=== PATIENT | female | born 1970 | race Caucasian/White ===

== ENCOUNTER 2017-11-08 14:38 | Inpatient (IN) | payer OTHER ==
[~2017-11-08] VITALS: Ht 167.6 cm; Wt 60.9 kg
[~2017-11-08 14:38] MED LIST: LORTA5 PO
[2017-11-08 14:40] VITALS: BP 122/77; PULSE 94; RESP 14; TEMP 100.2; O2SAT 100
--- NOTE | 2017-11-08 15:47 | RADRPT ---
EXAM DATE/TIME: 11/08/2017 15:15 [place] COMPARISON: No previous studies available for comparison. INDICATIONS : Pain and swelling in right knee. MEDICAL HISTORY : None. SURGICAL HISTORY : None. ENCOUNTER: Initial ACUITY: 1 day PAIN SCORE: 8/10 LOCATION: Right knee FINDINGS: Four view examination of the right knee demonstrates no evidence of fracture or dislocation. Bony mi neralization is normal. Minimal degenerative changes in the medial and patellofemoral compartments. T he suprapatellar soft tissues have a normal configuration. CONCLUSION: 1. 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 2. No acute fracture or dislocation. Jose Yadav MD on November 08, 2017 at 15:44 Board Certified Radiologist. This report was verified electronically.
[2017-11-08 16:39] LABS: AUTOMATED NEUTROPHIL # 21.3 TH/MM3 (1.8-7.7); BASOPHIL % 0.1 % (0.0-2.0); HEMATOCRIT 34.3 % (35.0-46.0); HEMOGLOBIN 11.4 GM/DL (11.6-15.3); LYMPH % 2.2 % (9.0-44.0); LYMPHOCYTE # 0.5 TH/MM3 (1.0-4.8); MEAN CELL VOLUME 86.2 FL (80.0-100.0); MEAN CORPUSCULAR HEMOGLOBIN 28.7 PG (27.0-34.0); MEAN CORPUSCULAR HGB CONC 33.3 % (32.0-36.0); MEAN PLATELET VOLUME 7.4 FL (7.0-11.0); MONO % 5.3 % (0.0-8.0); MONOCYTE # 1.2 TH/MM3 (0-0.9); NEUT % 92.4 % (16.0-70.0); PLATELET COUNT 228 TH/MM3 (150-450); RED BLOOD COUNT 3.97 MIL/MM3 (4.00-5.30); RED CELL DISTRIBUTION WIDTH 13.4 % (11.6-17.2); WHITE BLOOD COUNT 23.1 TH/MM3 (4.0-11.0)
[2017-11-08 16:53] LABS: ALBUMIN 3.3 GM/DL (3.4-5.0); ALT (GPT) 16 U/L (10-53); AST (GOT) 12 U/L (15-37); BICARBONATE 24.6 MEQ/L (21.0-32.0); BLOOD UREA NITROGEN 12 MG/DL (7-18); CALCIUM 8.3 MG/DL (8.5-10.1); CHLORIDE 97 MEQ/L (98-107); CREATININE 0.95 MG/DL (0.50-1.00); GLOMERULAR FILTRATION RATE 63 ML/MIN (>89); GLUCOSE,RANDOM 108 MG/DL (74-106); SODIUM (NA) 131 MEQ/L (136-145)
[2017-11-08 16:56] LABS: ALKALINE PHOSPHATASE 48 U/L (45-117); INTERNATIONAL NORMALIZED RATIO 1.2 RATIO; PROTHROMBIN TIME - PATIENT 12.4 SEC (9.8-11.6); TOTAL BILIRUBIN ADULT 0.6 MG/DL (0.2-1.0); TOTAL PROTEIN 6.7 GM/DL (6.4-8.2)
[2017-11-08 17:32] LABS: AMORPHOUS SEDIMENT, URINE RARE; BACTERIA, URINE RARE /hpf; BILIRUBIN, URINE NEG (NEG); BLOOD, URINE SMALL (NEG); GLUCOSE,URINE NEG (NEG); KETONE, URINE 10 mg/dL (NEG); NITRITE,URINE NEG (NEG); SQUAMOUS EPITHELIAL CELL URINE 3 /hpf (0-5); URINE COLOR YELLOW (YELLW/STRAW); URINE LEUKOCYTE ESTERASE NEG (NEG)
[2017-11-08] MEDS ORDERED: PIPERACIL-TAZO 4.5 GM PREMIX 100 ML IV STA (18:47)
[2017-11-08] MEDS ORDERED: VANCOMYCIN INJ 1,000 MG in SODIUM CHLOR 0.9% 250 ML INJ 250 ML IV STA (18:47)
--- NOTE | 2017-11-08 18:53 | PD ---
HPI Chief Complaint: Musculoskeletal Complaint Time Seen by Provider: 18:47 Travel History International Travel<30 days: No Contact w/Intl Traveler<30days: No Traveled to known affect area: No History of Present Illness HPI 47-year-old female patient presents to the ER today because of general weakness , fevers for several days. She states that she started not feeling well, states that she had a spot on her right knee that started a few days ago after she had been kneeling down at home and painting. She had a lesion there that was scabbing over that looked okay initially but then she noticed that there was increased swelling and redness. She was seen [facility] the [facility] yesterday and given a shot of IM antibiotics and released. However, she is feeling worse, having body aches and joint aches and is coming to the ER because of that. Modifying Factors: None Associated Signs & Symptoms: Fevers, joint pain, increased pain and redness at the right knee Risk Factors: None PFSH Social History Tobacco Use: No Allergies-Medications (Allergen,Severity, Reaction): Coded Allergies: codeine (Verified Adverse Reaction, Mild, NAUSEA, 11/08/17) Reported Meds & Prescriptions Reported Meds & Active Scripts Active Reported Flexeril (Cyclobenzaprine HCl) 5 Mg Tab 5 Mg PO TID [Unknown] Review of Systems Except as stated in HPI: all other systems reviewed are Neg Physical Exam Narrative GENERAL: Well-developed middle age female patient currently in mild distress. Awake and oriented 3. SKIN: Focused skin assessment warm/dry. There is notable 1 cm perforation to the right anterior knee and significant surrounding erythema and tenderness over the anterior knee going down the anterior retana. HEAD: Atraumatic. Normocephalic. EYES: Pupils equal and round. No scleral icterus. No injection or drainage. ENT: No nasal bleeding or discharge. Mucous membranes pink and moist. NECK: Trachea midline. No JVD. CARDIOVASCULAR: Regular rate and rhythm. No murmur appreciated. RESPIRATORY: No accessory muscle use. Clear to auscultation. Breath sounds equal bilaterally. GASTROINTESTINAL: Abdomen soft, non-tender, nondistended. Hepatic and splenic margins not palpable. MUSCULOSKELETAL: No obvious deformities. No clubbing. No cyanosis. No edema. NEUROLOGICAL: Awake and alert. No obvious cranial nerve deficits. Motor grossly within normal limits. Normal speech. PSYCHIATRIC: Appropriate mood and affect; insight and judgment normal. Data Data Last Documented VS Vital Signs Date Time Temp Pulse Resp B/P (MAP) Pulse Ox O2 Delivery O2 Flow Rate FiO2 11/08/17 14:40 100.2 94 14 122/77 (92) 100 Orders Orders Complete Blood Count With Diff (11/08/17 14:45) Comprehensive Metabolic Panel (11/08/17 14:45) Prothrombin Time / Inr (Pt) (11/08/17 14:45) Act Partial Throm Time (Ptt) (11/08/17 14:45) Westergren Sedimentation Rate (11/08/17 14:45) C-Reactive Protein (Crp) (11/08/17 14:45) Urinalysis - C+S If Indicated (11/08/17 14:45) Knee, Complete (4vws) (11/08/17 ) Lactic Acid Sepsis Protocol (11/08/17 14:47) Blood Culture (11/08/17 18:47) Piperacil-Tazo 4.5 Gm Premix (Zosyn 4.5 (11/08/17 18:47) Vancomycin Inj (Vancomycin Inj) (11/08/17 18:47) Admit Order (Ed Use Only) (11/08/17 19:18) Labs Laboratory Tests Test 11/08/17 16:20 White Blood Count 23.1 TH/MM3 Red Blood Count 3.97 MIL/MM3 Hemoglobin 11.4 GM/DL Hematocrit 34.3 % Mean Corpuscular Volume 86.2 FL Mean Corpuscular Hemoglobin 28.7 PG Mean Corpuscular Hemoglobin Concent 33.3 % Red Cell Distribution Width 13.4 % Platelet Count 228 TH/MM3 Mean Platelet Volume 7.4 FL Neutrophils (%) (Auto) 92.4 % Lymphocytes (%) (Auto) 2.2 % Monocytes (%) (Auto) 5.3 % Eosinophils (%) (Auto) 0.0 % Basophils (%) (Auto) 0.1 % Neutrophils # (Auto) 21.3 TH/MM3 Lymphocytes # (Auto) 0.5 TH/MM3 Monocytes # (Auto) 1.2 TH/MM3 Eosinophils # (Auto) 0.0 TH/MM3 Basophils # (Auto) 0.0 TH/MM3 CBC Comment DIFF FINAL Differential Comment Erythrocyte Sedimentation Rate 20 mm/hr Prothrombin Time 12.4 SEC Prothromb Time International Ratio 1.2 RATIO Activated Partial Thromboplast Time 32.6 SEC Urine Color YELLOW Urine Turbidity CLEAR Urine pH 8.0 Urine Specific [place] 1.020 Urine Protein 30 mg/dL Urine Glucose (UA) NEG mg/dL Urine Ketones 10 mg/dL Urine Occult Blood SMALL Urine Nitrite NEG Urine Bilirubin NEG Urine Urobilinogen LESS THAN 2.0 MG/DL Urine Leukocyte Esterase NEG Urine RBC 16 /hpf Urine WBC LESS THAN 1 /hpf Urine Squamous Epithelial Cells 3 /hpf Urine Amorphous Sediment RARE Urine Bacteria RARE /hpf Microscopic Urinalysis Comment CULT NOT INDICATED Blood Urea Nitrogen 12 MG/DL Creatinine 0.95 MG/DL Random Glucose 108 MG/DL Total Protein 6.7 GM/DL Albumin 3.3 GM/DL Calcium Level 8.3 MG/DL Alkaline Phosphatase 48 U/L Aspartate Amino Transf (AST/SGOT) 12 U/L Alanine Aminotransferase (ALT/SGPT) 16 U/L Total Bilirubin 0.6 MG/DL Sodium Level 131 MEQ/L Potassium Level 3.6 MEQ/L Chloride Level 97 MEQ/L Carbon Dioxide Level 24.6 MEQ/L Anion Gap 9 MEQ/L Estimat Glomerular Filtration Rate 63 ML/MIN Lactic Acid Level 1.2 mmol/L C-Reactive Protein 16.00 MG/DL [facility] Medical Decision Making Medical Screen Exam Complete: Yes Emergency Medical Condition: Yes Medical Record Reviewed: Yes Interpretation(s) Laboratory Tests Test 11/08/17 16:20 White Blood Count 23.1 TH/MM3 (4.0-11.0) Red Blood Count 3.97 MIL/MM3 (4.00-5.30) Hemoglobin 11.4 GM/DL (11.6-15.3) Hematocrit 34.3 % (35.0-46.0) Neutrophils (%) (Auto) 92.4 % (16.0-70.0) Lymphocytes (%) (Auto) 2.2 % (9.0-44.0) Neutrophils # (Auto) 21.3 TH/MM3 (1.8-7.7) Lymphocytes # (Auto) 0.5 TH/MM3 (1.0-4.8) Monocytes # (Auto) 1.2 TH/MM3 (0-0.9) Prothrombin Time 12.4 SEC (9.8-11.6) Activated Partial Thromboplast Time 32.6 SEC (24.3-30.1) Urine Protein 30 mg/dL (NEG-TRACE) Urine Ketones 10 mg/dL (NEG) Urine Occult Blood SMALL (NEG) Urine RBC 16 /hpf (0-3) Urine Bacteria RARE /hpf (NONE) Random Glucose 108 MG/DL (74-106) Albumin 3.3 GM/DL (3.4-5.0) Calcium Level 8.3 MG/DL (8.5-10.1) Aspartate Amino Transf (AST/SGOT) 12 U/L (15-37) Sodium Level 131 MEQ/L (136-145) Chloride Level 97 MEQ/L (98-107) Estimat Glomerular Filtration Rate 63 ML/MIN (>89) C-Reactive Protein 16.00 MG/DL (0.00-0.30) Last 24 hours Impressions Knee X-Ray 11/08/17 0000 Signed Impressions: Service Date/Time: Wednesday, November 08, 2017 15:15 - CONCLUSION: 1. 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 2. No acute fracture or dislocation. Jose Yadav MD Differential Diagnosis Cellulitis versus sepsis versus abscess versus viral syndrome Narrative Course There is significant cellulitis in the anterior right knee. She is febrile in the ER and leukocytosis was noted on lab work. IV is packs were initiated after blood cultures are drawn. My plan would be to admit her for further treatment. She apparently has failed outpatient antibiotics was given her yesterday. Case is discussed with Dr. Fortune for admission. Diagnosis Primary Impression: Cellulitis of right knee Additional Impression: Sepsis Admitting Information Admitting Physician Requests: Admit Heraclio Novoa MD Nov 08, 2017 18:53
[2017-11-08] MEDS ORDERED: CYCL5TAB PO (19:04)
[2017-11-08] MEDS ORDERED: SODIUM CHLORIDE 0.9% FLUSH 10 ML FLUSH IV FLUSH PRN (19:30)
[2017-11-08] MEDS ORDERED: ONDANSETRON HCL 4 MG/2 ML VIAL IVP PRN (19:30)
[2017-11-08] MEDS ORDERED: NALOXONE HCL 0.4 MG/ML AMP IV PUSH PRN (19:30)
[2017-11-08] MEDS ORDERED: Vancomycin Consult Pharmacy 1 EA OTHER SCH (19:30)
[2017-11-08] MEDS: SODIUM CHLORIDE 0.9% FLUSH 10 ML FLUSH IV FLUSH SCH (21:00)
[2017-11-08] MEDS: ENOXAPARIN SODIUM 40 MG/0.4 ML SYRINGE SQ SCH (21:00)
[2017-11-08 21:30] VITALS: BP 94/51; PULSE 91; RESP 19; TEMP 101.7; O2SAT 98
[2017-11-08] MEDS: ACETAMINOPHEN 325 MG TAB PO PRN (21:53)
[2017-11-08] MEDS: SODIUM CHLOR 0.9% 1000 ML INJ 1,000 ML IV SCH (21:54)
--- NOTE | 2017-11-08 21:57 | HHI.HP ---
[facility] Primary Care Physician [facility] Admission Diagnosis right knee cellulitis/sepsis Diagnoses: Travel History International Travel<30 Days: No Contact w/Intl Traveler <30 Da: No Traveled to Known Affected Are: No History of Present Illness 47-year-old female with a past medical history significant for anxiety presents for evaluation of right knee redness and swelling. The patient reports that 2 days ago she felt achy and had chills. She initially noticed right knee swelling yesterday with surrounding erythema that was warm to the touch. The patient went to the [facility] where she was evaluated and had 1 dose of IM antibiotic and was discharged with by mouth doxycycline. The patient reports that the swelling continued to expand with increased redness and pain. Patient reports she is able to ambulate however it is painful. She has a healing abrasion on the right knee that she sustained several days ago while painting her house. Vital signs: Temperature 100.2, pulse 94, respiratory rate 18, blood pressure 122/77, pulse ox 100% on room air Review of Systems Positive chills Denies blurry vision, otorrhea, rhinorrhea Denies sore throat and cough No chest pain, palpitations No shortness of breath or wheezing No abdominal pain Denies constipation/diarrhea/nausea/vomiting Right knee/lower extremity pain Denies focal weakness No rashes Past Family Social History Past Medical History Anxiety Past Surgical History Liposuction Breast augmentation D&C Reported Medications Reported Meds & Active Scripts Active Reported Flexeril (Cyclobenzaprine HCl) 5 Mg Tab 5 Mg PO TID [Unknown] Allergies: Coded Allergies: codeine (Verified Adverse Reaction, Mild, NAUSEA, 11/08/17) Family History Father with CAD Social History Denies tobacco. Rare alcohol. Denies illicit drugs. Physical Exam Vital Signs Vital Signs Date Time Temp Pulse Resp B/P (MAP) Pulse Ox O2 Delivery O2 Flow Rate FiO2 11/08/17 21:30 101.7 91 19 94/51 (65) 98 11/08/17 20:35 11/08/17 14:40 100.2 94 14 122/77 (92) 100 Physical Exam GENERAL: female lying in bed shivering SKIN: Erythema extending from above the knee to senior care down the right lower extremity. Warm to the touch with healing abrasion on the knee joint. No drainage or fluctuance. HEAD: Atraumatic. Normocephalic. No temporal or scalp tenderness. EYES: Pupils equal round and reactive. Extraocular motions intact. No scleral icterus. No injection or drainage. ENT: Nose without bleeding, purulent drainage or septal hematoma. Throat without erythema, tonsillar hypertrophy or exudate. Uvula midline. Airway patent. NECK: Trachea midline. No JVD or lymphadenopathy. Supple, nontender, no meningeal signs. CARDIOVASCULAR: Regular rate and rhythm without murmurs, gallops, or rubs. RESPIRATORY: Clear to auscultation. Breath sounds equal bilaterally. No wheezes , rales, or rhonchi. GASTROINTESTINAL: Abdomen soft, non-tender, nondistended. No hepato-splenomegaly , or palpable masses. No guarding. MUSCULOSKELETAL: Right knee with swelling. Full range of motion. Neurovascularly intact. NEUROLOGICAL: Awake and alert. Cranial nerves II through XII intact. Motor and sensory grossly within normal limits. Normal speech. Laboratory Laboratory Tests Test 11/08/17 16:20 White Blood Count 23.1 Red Blood Count 3.97 Hemoglobin 11.4 Hematocrit 34.3 Mean Corpuscular Volume 86.2 Mean Corpuscular Hemoglobin 28.7 Mean Corpuscular Hemoglobin Concent 33.3 Red Cell Distribution Width 13.4 Platelet Count 228 Mean Platelet Volume 7.4 Neutrophils (%) (Auto) 92.4 Lymphocytes (%) (Auto) 2.2 Monocytes (%) (Auto) 5.3 Eosinophils (%) (Auto) 0.0 Basophils (%) (Auto) 0.1 Neutrophils # (Auto) 21.3 Lymphocytes # (Auto) 0.5 Monocytes # (Auto) 1.2 Eosinophils # (Auto) 0.0 Basophils # (Auto) 0.0 CBC Comment DIFF FINAL Differential Comment Erythrocyte Sedimentation Rate 20 Prothrombin Time 12.4 Prothromb Time International Ratio 1.2 Activated Partial Thromboplast Time 32.6 Urine Color YELLOW Urine Turbidity CLEAR Urine pH 8.0 Urine Specific [place] 1.020 Urine Protein 30 Urine Glucose (UA) NEG Urine Ketones 10 Urine Occult Blood SMALL Urine Nitrite NEG Urine Bilirubin NEG Urine Urobilinogen LESS THAN 2.0 Urine Leukocyte Esterase NEG Urine RBC 16 Urine WBC LESS THAN 1 Urine Squamous Epithelial Cells 3 Urine Amorphous Sediment RARE Urine Bacteria RARE Microscopic Urinalysis Comment CULT NOT INDICATED Blood Urea Nitrogen 12 Creatinine 0.95 Random Glucose 108 Total Protein 6.7 Albumin 3.3 Calcium Level 8.3 Alkaline Phosphatase 48 Aspartate Amino Transf (AST/SGOT) 12 Alanine Aminotransferase (ALT/SGPT) 16 Total Bilirubin 0.6 Sodium Level 131 Potassium Level 3.6 Chloride Level 97 Carbon Dioxide Level 24.6 Anion Gap 9 Estimat Glomerular Filtration Rate 63 Lactic Acid Level 1.2 C-Reactive Protein 16.00 Date/Time Source Procedure Growth Status 11/08/17 18:50 Blood Peripheral Aerobic Blood Culture Pending Received 11/08/17 18:50 Blood Peripheral Anaerobic Blood Culture Pending Received Result Diagram: 11/08/17 1620 11/08/17 1620 Rafy VTE Risk Assessment Rafy VTE Risk Assessment: No/Low Risk (score <= 1) Caprini Risk Assessment Model Point Value = 1 Point Value = 2 Point Value = 3 Point Value = 5 Age 41-60 Minor surgery BMI > 25 kg/m2 Swollen legs Varicose veins or History of unexplained or recurrent spontaneous Oral contraceptives or hormone replacement Sepsis (< 1 month) Serious lung disease, including pneumonia (< 1 month) Abnormal pulmonary function Acute myocardial infarction Congestive heart failure (< 1 month) History of inflammatory bowel disease Medical patient at bed rest Age 61-74 Arthroscopic surgery Major open surgery (> 45 min) Laparoscopic surgery (> 45 min) Malignancy Confined to bed (> 72 hours) Immobilizing plaster cast Central venous access Age >= 75 History of VTE Family history of VTE Factor V Leiden Prothrombin [id number] Lupus anticoagulant Anticardiolipin antibodies Elevated serum homocysteine Heparin-induced thrombocytopenia Other congenital or acquired thrombophilia Stroke (< 1 month) Elective arthroplasty Hip, pelvis, or leg fracture Acute spinal cord injury (< 1 month) Prophylaxis Regimen Total Risk Factor Score Risk Level Prophylaxis Regimen 0-1 Low Early ambulation 2 Moderate Order ONE of the following: *Sequential Compression Device (SCD) *Heparin 5000 units SQ BID 3-4 Higher Order ONE of the following medications: *Heparin 5000 units SQ TID *Enoxaparin/Lovenox 40 mg SQ daily (WT < 150 kg, CrCl > 30 mL/min) *Enoxaparin/Lovenox 30 mg SQ daily (WT < 150 kg, CrCl > 10-29 mL/min) *Enoxaparin/Lovenox 30 mg SQ BID (WT < 150 kg, CrCl > 30 mL/min) AND/OR *Sequential Compression Device (SCD) 5 or more Highest Order ONE of the following medications: *Heparin 5000 units SQ TID (Preferred with Epidurals) *Enoxaparin/Lovenox 40 mg SQ daily (WT < 150 kg, CrCl > 30 mL/min) *Enoxaparin/Lovenox 30 mg SQ daily (WT < 150 kg, CrCl > 10-29 mL/min) *Enoxaparin/Lovenox 30 mg SQ BID (WT < 150 kg, CrCl > 30 mL/min) AND *Sequential Compression Device (SCD) Assessment and Plan Assessment and Plan Assessment/plan: 1. Cellulitis, failed outpatient therapy Patient with swollen knee joint and surrounding erythema/edema Vancomycin/Zosyn Blood cultures pending Monitor for signs of sepsis If symptoms do not improve patient may benefit from tap of right knee joint with fluid studies, clinically does not appear to be septic joint Knee x-ray without acute process 2. Anxiety Patient reports she rarely requires medication FEN Heart healthy diet Electrolytes: monitor and replete prn Physician Certification 2 Midnight Certification Type: Admission for Inpatient Services Order for Inpatient Services The services are ordered in accordance with Medicare regulations or non- Medicare payer requirements, as applicable. In the case of services not specified as inpatient-only, they are appropriately provided as inpatient services in accordance with the 2-midnight benchmark. Estimated LOS (days): 2 2 days is the estimated time the patient will need to remain in the hospital, assuming treatment plan goals are met and no additional complications. Post-Hospital Plan: Not yet determined Marie Fortune MD Nov 08, 2017 21:57
[2017-11-08] MEDS ORDERED: ZOLPIDEM TARTRATE 10 MG TAB PO PRN (22:00)
[2017-11-09] VITALS (8 sets, daily range): BP systolic 77–112; BP diastolic 44–59; PULSE 76–98; RESP 18; TEMP 98.1–100; O2SAT 96–100
[2017-11-09] MEDS: PIPERACIL-TAZO 3.375 GM PREMIX 50 ML IV SCH ×4 (01:06→20:42)
[2017-11-09] MEDS ORDERED: SODIUM CHLOR 0.9% 1000 ML INJ 1,000 ML IV ONE ×2 (02:30→04:15)
[2017-11-09] MEDS: ACETAMINOPHEN 325 MG TAB PO PRN (04:21)
[2017-11-09] MEDS: VANCOMYCIN INJ 750 MG in SODIUM CHLOR 0.9% 250 ML INJ 250 ML IV SCH ×2 (05:36→18:34)
[2017-11-09] MEDS ORDERED: LORazepam 0.5 MG TAB PO ONE (06:15)
[2017-11-09] MEDS: SODIUM CHLOR 0.9% 1000 ML INJ 1,000 ML IV SCH ×2 (06:26→15:30)
[2017-11-09 06:58] LABS: AUTOMATED NEUTROPHIL # 15.1 TH/MM3 (1.8-7.7); BASOPHIL % 0.1 % (0.0-2.0); HEMATOCRIT 30.1 % (35.0-46.0); HEMOGLOBIN 10.3 GM/DL (11.6-15.3); LYMPH % 4.1 % (9.0-44.0); LYMPHOCYTE # 0.7 TH/MM3 (1.0-4.8); MEAN CELL VOLUME 85.2 FL (80.0-100.0); MEAN CORPUSCULAR HEMOGLOBIN 29.2 PG (27.0-34.0); MEAN CORPUSCULAR HGB CONC 34.3 % (32.0-36.0); MEAN PLATELET VOLUME 7.7 FL (7.0-11.0); MONO % 6.9 % (0.0-8.0); MONOCYTE # 1.2 TH/MM3 (0-0.9); NEUT % 88.9 % (16.0-70.0); PLATELET COUNT 183 TH/MM3 (150-450); RED BLOOD COUNT 3.54 MIL/MM3 (4.00-5.30); RED CELL DISTRIBUTION WIDTH 13.6 % (11.6-17.2)
[2017-11-09 07:24] LABS: ALBUMIN 2.6 GM/DL (3.4-5.0); BICARBONATE 20.7 MEQ/L (21.0-32.0); CALCIUM 7.2 MG/DL (8.5-10.1); CALCIUM-PROTEIN CORRECTED 7.8 MG/DL (8.5-10.1); CREATININE 0.9 MG/DL (0.50-1.00); TOTAL BILIRUBIN ADULT 0.6 MG/DL (0.2-1.0); TOTAL PROTEIN 5.9 GM/DL (6.4-8.2)
[2017-11-09] MEDS: oxyCODONE/ACETAMINOPHEN 5 MG/325 MG TAB PO PRN ×3 (08:51→18:30)
[2017-11-09] MEDS: SODIUM CHLORIDE 0.9% FLUSH 10 ML FLUSH IV FLUSH SCH ×2 (09:00→20:47)
--- NOTE | 2017-11-09 13:20 | PD.ID.CON ---
History of Present Illness Service ID Consult Requested By Dr Dior Reason for Consult RLE cellulitis Primary Care Physician [facility] Diagnoses: History of Present Illness 47 yo female w/o past med history presented with nearly a week of RLE pain, swelling redness It started after [place] trauma of the knee SHe was prescribed doxycyclin as out patient but only took 1 pill and presentef to the hospital with orsning pain, swelling and redness + fever up to 101.7, c/o shivering She ia on broad sepctrul abx - zosyn, vancomycin No improvement WBC 23 K on presentation, slightly improved to 17 K Pt thinks she feels worse in the last 24-48 hrs despite of abx Review of Systems Constitutional: COMPLAINS OF: Fever, Chills Musculoskeletal: COMPLAINS OF: Joint pain, Joint Swelling Neurologic: COMPLAINS OF: Abnormal gait Except as stated in HPI: all other systems reviewed are Neg Past Family Social History Allergies: Coded Allergies: codeine (Verified Adverse Reaction, Mild, NAUSEA, 11/08/17) Past Medical History none Past Surgical History breast aumentaion lyposuction D+C Active Ordered Medications Medications where reviewed in EMR Antibiotics Include: zosyn vanco Family History non contributory Social History occ MJ no tobacco no ETOH Physical Exam Vital Signs Vital Signs Date Time Temp Pulse Resp B/P (MAP) Pulse Ox O2 Delivery O2 Flow Rate FiO2 11/09/17 12:21 98.1 90 18 112/59 (76) 97 11/09/17 07:47 98.9 89 18 105/56 (72) 97 11/09/17 05:29 91/52 (65) 11/09/17 03:49 99.5 98 18 96/51 (66) 96 11/09/17 01:45 82/50 (61) 11/09/17 00:48 98.4 76 18 77/44 (55) 98 11/08/17 21:30 101.7 91 19 94/51 (65) 98 11/08/17 20:35 11/08/17 14:40 100.2 94 14 122/77 (92) 100 Physical Exam CONSTITUTIONAL/GENERAL: This is an adequately nourished patient, in no apparent distress. Visibly shivering TUBES/LINES/DRAINS: SKIN: No jaundice, rashes, or lesions. Ecchymoses on upper extremities. No wounds seen anteriorly. Skin temperature appropriate. Not diaphoretic. HEAD: Atraumatic. Normocephalic. EYES: Pupils equal and round and reactive. Extraocular motions intact. No scleral icterus. No injection or drainage. Fundi not examined. ENT: Hearing grossly normal. Nose without bleeding or purulent drainage. Throat without visible erythema, exudates, masses, or lesions. NECK: Trachea midline. Supple, nontender. No palpable thyroid enlargement or nodularity. CARDIOVASCULAR: Regular rate and rhythm without murmurs, gallops, or rubs. No JVD. Peripheral pulses symmetric. RESPIRATORY/CHEST: Symmetric, unlabored respirations. Clear to auscultation. Breath sounds equal bilaterally. No wheezes, rales, or rhonchi. GASTROINTESTINAL: Abdomen soft, non-tender, nondistended. No hepato-splenomegaly , or palpable masses. No guarding. Bowel sounds present. GENITOURINARY: Without palpable bladder distension. MUSCULOSKELETAL: Extremities without clubbing, cyanosis RLE with dry scab just below the knee Erythema including lower and upper portion of the RLE + limited PROM and AROM 2/2 pain + Ipsilateral inguinal lymphadenopathy, tender to palpation, enlarged, non fluctuant R knee joint tenderness and small to moderate effusion noted. No calf tenderness. No mottling or clubbing. LYMPHATICS: No palpable cervical or supraclavicular adenopathy. NEUROLOGICAL: Awake and alert. Motor and sensory grossly within normal limits. Follows commands. Cognitively sharp. Moves all extremities. PSYCHIATRIC: No obvious anxiety/depression. no apparent hallucinations or other psychotic thought process. Laboratory Laboratory Tests Test 11/08/17 16:20 11/09/17 06:02 White Blood Count 23.1 17.0 Red Blood Count 3.97 3.54 Hemoglobin 11.4 10.3 Hematocrit 34.3 30.1 Mean Corpuscular Volume 86.2 85.2 Mean Corpuscular Hemoglobin 28.7 29.2 Mean Corpuscular Hemoglobin Concent 33.3 34.3 Red Cell Distribution Width 13.4 13.6 Platelet Count 228 183 Mean Platelet Volume 7.4 7.7 Neutrophils (%) (Auto) 92.4 88.9 Lymphocytes (%) (Auto) 2.2 4.1 Monocytes (%) (Auto) 5.3 6.9 Eosinophils (%) (Auto) 0.0 0.0 Basophils (%) (Auto) 0.1 0.1 Neutrophils # (Auto) 21.3 15.1 Lymphocytes # (Auto) 0.5 0.7 Monocytes # (Auto) 1.2 1.2 Eosinophils # (Auto) 0.0 0.0 Basophils # (Auto) 0.0 0.0 CBC Comment DIFF FINAL DIFF FINAL Differential Comment Erythrocyte Sedimentation Rate 20 Prothrombin Time 12.4 Prothromb Time International Ratio 1.2 Activated Partial Thromboplast Time 32.6 Urine Color YELLOW Urine Turbidity CLEAR Urine pH 8.0 Urine Specific [place] 1.020 Urine Protein 30 Urine Glucose (UA) NEG Urine Ketones 10 Urine Occult Blood SMALL Urine Nitrite NEG Urine Bilirubin NEG Urine Urobilinogen LESS THAN 2.0 Urine Leukocyte Esterase NEG Urine RBC 16 Urine WBC LESS THAN 1 Urine Squamous Epithelial Cells 3 Urine Amorphous Sediment RARE Urine Bacteria RARE Microscopic Urinalysis Comment CULT NOT INDICATED Blood Urea Nitrogen 12 8 Creatinine 0.95 0.90 Random Glucose 108 97 Total Protein 6.7 5.9 Albumin 3.3 2.6 Calcium Level 8.3 7.2 Alkaline Phosphatase 48 56 Aspartate Amino Transf (AST/SGOT) 12 12 Alanine Aminotransferase (ALT/SGPT) 16 11 Total Bilirubin 0.6 0.6 Sodium Level 131 135 Potassium Level 3.6 3.2 Chloride Level 97 105 Carbon Dioxide Level 24.6 20.7 Anion Gap 9 9 Estimat Glomerular Filtration Rate 63 67 Lactic Acid Level 1.2 C-Reactive Protein 16.00 Protein Corrected Calcium 7.8 Date/Time Source Procedure Growth Status 11/08/17 19:00 Blood Peripheral Aerobic Blood Culture Pending Received 11/08/17 19:00 Blood Peripheral Anaerobic Blood Culture Pending Received Result Diagram: 11/09/17 0602 11/09/17 0602 Imaging Last Impressions Knee X-Ray 11/08/17 0000 Signed Impressions: Service Date/Time: Wednesday, November 08, 2017 15:15 - CONCLUSION: 1. 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 2. No acute fracture or dislocation. Jose Yadav MD Assessment and Plan Assessment and Plan RLE cellulitis with suspected R knee bursitis vs septic arthritis CT R knee with aspiration of fluid cont broad spectrum abx Justa Fitzgerald MD Nov 09, 2017 13:20
--- NOTE | 2017-11-09 14:04 | HHI.PR ---
Subjective Remarks This is a pleasant 47 y/o Female seen in the presence of nurse Miss Lott and Nurse Miss Chandler, stable complaint of pain and not improving, was asked for the intervention of Infectious disease specialist asked for CT aspiration of the right knee and continue antibiotics. at this time having some chills. Objective Vital Signs Date Time Temp Pulse Resp B/P (MAP) Pulse Ox O2 Delivery O2 Flow Rate FiO2 11/09/17 12:21 98.1 90 18 112/59 (76) 97 11/09/17 07:47 98.9 89 18 105/56 (72) 97 11/09/17 05:29 91/52 (65) 11/09/17 03:49 99.5 98 18 96/51 (66) 96 11/09/17 01:45 82/50 (61) 11/09/17 00:48 98.4 76 18 77/44 (55) 98 11/08/17 21:30 101.7 91 19 94/51 (65) 98 11/08/17 20:35 11/08/17 14:40 100.2 94 14 122/77 (92) 100 I/O 11/08/17 11/08/17 11/08/17 11/09/17 11/09/17 11/09/17 06:59 14:59 22:59 06:59 14:59 22:59 Intake Total 200 ml Balance 200 ml Intake Oral 200 ml # Voids 4 Result Diagram: 11/09/17 0602 11/09/17 0602 Imaging Last Impressions Knee X-Ray 11/08/17 0000 Signed Impressions: Service Date/Time: Wednesday, November 08, 2017 15:15 - CONCLUSION: 1. 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 2. No acute fracture or dislocation. Jose Yadav MD Procedures None Other Results Laboratory Tests Test 11/08/17 16:20 11/09/17 06:02 Erythrocyte Sedimentation Rate 20 mm/hr Prothrombin Time 12.4 SEC Prothromb Time International Ratio 1.2 RATIO Activated Partial Thromboplast Time 32.6 SEC Urine Color YELLOW Urine Turbidity CLEAR Urine pH 8.0 Urine Specific [place] 1.020 Urine Protein 30 mg/dL Urine Glucose (UA) NEG mg/dL Urine Ketones 10 mg/dL Urine Occult Blood SMALL Urine Nitrite NEG Urine Bilirubin NEG Urine Urobilinogen LESS THAN 2.0 MG/DL Urine Leukocyte Esterase NEG Urine RBC 16 /hpf Urine WBC LESS THAN 1 /hpf Urine Squamous Epithelial Cells 3 /hpf Urine Amorphous Sediment RARE Urine Bacteria RARE /hpf Microscopic Urinalysis Comment CULT NOT INDICATED Lactic Acid Level 1.2 mmol/L C-Reactive Protein 16.00 MG/DL White Blood Count 17.0 TH/MM3 Red Blood Count 3.54 MIL/MM3 Hemoglobin 10.3 GM/DL Hematocrit 30.1 % Mean Corpuscular Volume 85.2 FL Mean Corpuscular Hemoglobin 29.2 PG Mean Corpuscular Hemoglobin Concent 34.3 % Red Cell Distribution Width 13.6 % Platelet Count 183 TH/MM3 Mean Platelet Volume 7.7 FL Neutrophils (%) (Auto) 88.9 % Lymphocytes (%) (Auto) 4.1 % Monocytes (%) (Auto) 6.9 % Eosinophils (%) (Auto) 0.0 % Basophils (%) (Auto) 0.1 % Neutrophils # (Auto) 15.1 TH/MM3 Lymphocytes # (Auto) 0.7 TH/MM3 Monocytes # (Auto) 1.2 TH/MM3 Eosinophils # (Auto) 0.0 TH/MM3 Basophils # (Auto) 0.0 TH/MM3 CBC Comment DIFF FINAL Differential Comment Blood Urea Nitrogen 8 MG/DL Creatinine 0.90 MG/DL Random Glucose 97 MG/DL Total Protein 5.9 GM/DL Albumin 2.6 GM/DL Calcium Level 7.2 MG/DL Alkaline Phosphatase 56 U/L Aspartate Amino Transf (AST/SGOT) 12 U/L Alanine Aminotransferase (ALT/SGPT) 11 U/L Total Bilirubin 0.6 MG/DL Sodium Level 135 MEQ/L Potassium Level 3.2 MEQ/L Chloride Level 105 MEQ/L Carbon Dioxide Level 20.7 MEQ/L Anion Gap 9 MEQ/L Estimat Glomerular Filtration Rate 67 ML/MIN Protein Corrected Calcium 7.8 MG/DL Objective Remarks GENERAL: no acute distress. SKIN: Erythema extending from above the knee to penitentiary down the right lower extremity. Warm to the touch with healing abrasion on the knee joint. No drainage or fluctuance. HEAD: Atraumatic. Normocephalic. No temporal or scalp tenderness. EYES: Pupils equal round and reactive. Extraocular motions intact. No scleral icterus. No injection or drainage. ENT: Nose without bleeding, purulent drainage or septal hematoma. Throat without erythema, tonsillar hypertrophy or exudate. Uvula midline. Airway patent. NECK: Trachea midline. No JVD or lymphadenopathy. Supple, nontender, no meningeal signs. CARDIOVASCULAR: Regular rate and rhythm without murmurs, gallops, or rubs. RESPIRATORY: Clear to auscultation. Breath sounds equal bilaterally. No wheezes , rales, or rhonchi. GASTROINTESTINAL: Abdomen soft, non-tender, nondistended. No hepato-splenomegaly , or palpable masses. No guarding. MUSCULOSKELETAL: Right knee with swelling. Full range of motion. Neurovascularly intact. NEUROLOGICAL: Awake and alert. Cranial nerves II through XII intact. Motor and sensory grossly within normal limits. Normal speech. Medications and IVs Current Medications Medications (Trade) Dose Ordered Sig/Torrey Route Start Time Stop Time Status Last Admin Sodium Chloride 1,000 ml @ 100 mls/hr Q10H IV 11/08/17 19:30 11/09/17 06:26 (NS Flush) 2 ml UNSCH PRN IV FLUSH 11/08/17 19:30 (NS Flush) 2 ml BID IV FLUSH 11/08/17 21:00 (Tylenol) 650 mg Q4H PRN PO 11/08/17 19:30 11/09/17 04:21 (Zofran Inj) 4 mg Q6H PRN IVP 11/08/17 19:30 (Lovenox Inj) 40 mg Q24H SQ 11/08/17 21:00 (Narcan Inj) 0.4 mg UNSCH PRN IV PUSH 11/08/17 19:30 Pharmacy Profile Note 0 ml @ 0 mls/hr UNSCH OTHER 11/08/17 19:30 Piperacillin Sod/ Tazobactam Sod 50 ml @ 100 mls/hr Q6H IV 11/09/17 01:00 11/09/17 13:20 (Ambien) 10 mg HS PRN PO 11/08/17 22:00 (Percocet 5-325 Mg) 1 tab Q4H PRN PO 11/08/17 22:00 11/09/17 13:26 Vancomycin HCl 750 mg/Sodium Chloride 257.5 ml @ 250 mls/hr Q12H IV 11/09/17 06:00 11/09/17 05:36 Miscellaneous Information SPECIFIC LAB TO BE GARRETT... ONCE ONCE .XX 11/10/17 05:45 11/10/17 05:46 A/P Assessment and Plan 1. Cellulitis, failed outpatient therapy, to continue Zosyn and Vancomycin, blood cultures following, ID specialist following recommended CT Right knee with aspiration of fluid, all plan discussed with patient in front of two nurses Miss Lott and Miss Chandler, patient agreed. Appreciated ID specialist input. Leukocytosis trending down with antibiotics. 2. Anxiety disorder rarely requires medication 3. Hypokalemia replaced and following. DVT prophylaxis SCDs on hold Pharmacological management due to procedure scheduled. Discharge Planning Once cleared by ID specialist. Nic Le MD Nov 09, 2017 2:04 pm
[2017-11-09] MEDS ORDERED: POTASSIUM CHLORIDE 20 MEQ CONTROLLED RELEASE TAB PO ONE ×2 (14:15→17:00)
--- NOTE | 2017-11-09 19:48 | RADRPT ---
EXAM DATE/TIME: 11/09/2017 19:15 [facility] COMPARISON: No previous studies available for comparison. INDICATIONS : Right knee pain. RADIATION DOSE: 7.29 CTDIvol (mGy) MEDICAL HISTORY : Carcinoma; skin. SURGICAL HISTORY : None. ENCOUNTER: Initial ACUITY: 1 day PAIN SCALE: 8/10 LOCATION: Right knee TECHNIQUE: Volumetric scanning of the knee was performed. Using automated exposure control and adjustment of th e mA and/or kV according to patient size, radiation dose was kept as low as reasonably achievable to obtain optimal diagnostic quality images. DICOM format image data is available electronically for re view and comparison. FINDINGS: No acute bony abnormality. There is a small knee joint effusion. There is extensive edema or inflamma tory change in the anterior soft tissues, especially prepatellar. CONCLUSION: 1. Small joint effusion. Probable cellulitis anteriorly over the knee. Paul Nowak MD on November 09, 2017 at 19:44 Board Certified Radiologist. This report was verified electronically.
[2017-11-09] MEDS: ENOXAPARIN SODIUM 40 MG/0.4 ML SYRINGE SQ SCH (20:47)
[2017-11-10 00:47] VITALS: BP 101/66; PULSE 96; RESP 18; TEMP 98.5; O2SAT 97
[2017-11-10] MEDS: PIPERACIL-TAZO 3.375 GM PREMIX 50 ML IV SCH ×4 (01:33→21:34)
[2017-11-10] MEDS: SODIUM CHLOR 0.9% 1000 ML INJ 1,000 ML IV SCH ×3 (03:48→21:35)
[2017-11-10 04:18] VITALS: BP 106/55; PULSE 93; RESP 18; TEMP 99.6; O2SAT 94
[2017-11-10] MEDS ORDERED: PHARMACY ORDERED LAB ONE (05:45)
[2017-11-10] MEDS: VANCOMYCIN INJ 750 MG in SODIUM CHLOR 0.9% 250 ML INJ 250 ML IV SCH (06:18)
[2017-11-10 06:21] LABS: AUTOMATED NEUTROPHIL # 13.6 TH/MM3 (1.8-7.7); BASOPHIL % 0.2 % (0.0-2.0); EOSINOPHIL % 0.1 % (0.0-4.0); HEMATOCRIT 27.5 % (35.0-46.0); HEMOGLOBIN 9.6 GM/DL (11.6-15.3); LYMPH % 7.3 % (9.0-44.0); LYMPHOCYTE # 1.2 TH/MM3 (1.0-4.8); MEAN CELL VOLUME 84.6 FL (80.0-100.0); MEAN CORPUSCULAR HEMOGLOBIN 29.5 PG (27.0-34.0); MEAN CORPUSCULAR HGB CONC 34.9 % (32.0-36.0); MEAN PLATELET VOLUME 7.5 FL (7.0-11.0); MONO % 6.6 % (0.0-8.0); NEUT % 85.8 % (16.0-70.0); PLATELET COUNT 182 TH/MM3 (150-450); RED BLOOD COUNT 3.25 MIL/MM3 (4.00-5.30); RED CELL DISTRIBUTION WIDTH 13.4 % (11.6-17.2); WHITE BLOOD COUNT 15.8 TH/MM3 (4.0-11.0)
[2017-11-10 07:27] LABS: BICARBONATE 20.5 MEQ/L (21.0-32.0); CALCIUM 7.4 MG/DL (8.5-10.1); CREATININE 0.88 MG/DL (0.50-1.00); MAGNESIUM 1.9 MG/DL (1.5-2.5); PHOSPHORUS 1.2 MG/DL (2.5-4.9); VANCOMYCIN TROUGH 1.7 MCG/ML (5.0-10.0)
[2017-11-10 08:03] LABS: CALCIUM-PROTEIN CORRECTED 8.3 MG/DL (8.5-10.1); TOTAL PROTEIN 5.4 GM/DL (6.4-8.2)
[2017-11-10] MEDS: ACETAMINOPHEN 325 MG TAB PO PRN ×2 (08:09→20:32)
[2017-11-10] MEDS: SODIUM CHLORIDE 0.9% FLUSH 10 ML FLUSH IV FLUSH SCH ×2 (08:09→21:34)
--- NOTE | 2017-11-10 08:43 | HHI.PR ---
Subjective Remarks This is a pleasant 47 y/o Female seen in the presence of nurse Miss Lott and Nurse Miss Chandler, stable complaint of pain and not improving, was asked for the intervention of Infectious disease specialist asked for CT aspiration of the right knee and continue antibiotics. at this time having some chills. 11/10: stable in her bedroom, explained to the patient her and another relative in the room, about her plan of care, later today she will have a needle aspiration of her Right knee fluid, continue Vancomycin and Zosyn, she will complete 48 hours at 1620 hours today, no nausea, vomit or diarrhea, discussed with nurse Miss Watkins, the patient asked for Anxiety medicine. Objective Vital Signs Date Time Temp Pulse Resp B/P (MAP) Pulse Ox O2 Delivery O2 Flow Rate FiO2 11/10/17 04:18 99.6 93 18 106/55 (72) 94 11/10/17 00:47 98.5 96 18 101/66 (78) 97 11/09/17 21:58 100.0 90 18 96/53 (67) 96 11/09/17 17:09 99.2 95 18 91/57 (68) 100 11/09/17 12:21 98.1 90 18 112/59 (76) 97 I/O 11/09/17 11/09/17 11/09/17 11/10/17 11/10/17 11/10/17 07:00 15:00 23:00 07:00 15:00 23:00 Intake Total 200 ml Balance 200 ml Intake Oral 200 ml # Voids 4 2 6 Result Diagram: 11/10/17 0523 11/10/17 0523 Imaging Last Impressions Lower Extremity CT 11/09/17 0000 Signed Impressions: Service Date/Time: Thursday, November 09, 2017 19:15 - CONCLUSION: 1. Small joint effusion. Probable cellulitis anteriorly over the knee. Paul Nowak MD Knee X-Ray 11/08/17 0000 Signed Impressions: Service Date/Time: Wednesday, November 08, 2017 15:15 - CONCLUSION: 1. 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 2. No acute fracture or dislocation. Jose Yadav MD Procedures None Other Results Laboratory Tests Test 11/08/17 16:20 1/24/18 06:02 11/10/17 05:23 Erythrocyte Sedimentation Rate 20 mm/hr Prothrombin Time 12.4 SEC Prothromb Time International Ratio 1.2 RATIO Activated Partial Thromboplast Time 32.6 SEC Urine Color YELLOW Urine Turbidity CLEAR Urine pH 8.0 Urine Specific [place] 1.020 Urine Protein 30 mg/dL Urine Glucose (UA) NEG mg/dL Urine Ketones 10 mg/dL Urine Occult Blood SMALL Urine Nitrite NEG Urine Bilirubin NEG Urine Urobilinogen LESS THAN 2.0 MG/DL Urine Leukocyte Esterase NEG Urine RBC 16 /hpf Urine WBC LESS THAN 1 /hpf Urine Squamous Epithelial Cells 3 /hpf Urine Amorphous Sediment RARE Urine Bacteria RARE /hpf Microscopic Urinalysis Comment CULT NOT INDICATED Lactic Acid Level 1.2 mmol/L C-Reactive Protein 16.00 MG/DL Blood Urea Nitrogen 8 MG/DL 5 MG/DL Creatinine 0.90 MG/DL 0.88 MG/DL Random Glucose 97 MG/DL 83 MG/DL Total Protein 5.9 GM/DL 5.4 GM/DL Albumin 2.6 GM/DL Calcium Level 7.2 MG/DL 7.4 MG/DL Alkaline Phosphatase 56 U/L Aspartate Amino Transf (AST/SGOT) 12 U/L Alanine Aminotransferase (ALT/SGPT) 11 U/L Total Bilirubin 0.6 MG/DL Sodium Level 135 MEQ/L 135 MEQ/L Potassium Level 3.2 MEQ/L 3.7 MEQ/L Chloride Level 105 MEQ/L 106 MEQ/L Carbon Dioxide Level 20.7 MEQ/L 20.5 MEQ/L White Blood Count 15.8 TH/MM3 Red Blood Count 3.25 MIL/MM3 Hemoglobin 9.6 GM/DL Hematocrit 27.5 % Mean Corpuscular Volume 84.6 FL Mean Corpuscular Hemoglobin 29.5 PG Mean Corpuscular Hemoglobin Concent 34.9 % Red Cell Distribution Width 13.4 % Platelet Count 182 TH/MM3 Mean Platelet Volume 7.5 FL Neutrophils (%) (Auto) 85.8 % Lymphocytes (%) (Auto) 7.3 % Monocytes (%) (Auto) 6.6 % Eosinophils (%) (Auto) 0.1 % Basophils (%) (Auto) 0.2 % Neutrophils # (Auto) 13.6 TH/MM3 Lymphocytes # (Auto) 1.2 TH/MM3 Monocytes # (Auto) 1.0 TH/MM3 Eosinophils # (Auto) 0.0 TH/MM3 Basophils # (Auto) 0.0 TH/MM3 CBC Comment DIFF FINAL Differential Comment Phosphorus Level 1.2 MG/DL Magnesium Level 1.9 MG/DL Anion Gap 9 MEQ/L Estimat Glomerular Filtration Rate 68 ML/MIN Protein Corrected Calcium 8.3 MG/DL Vancomycin Level Trough 1.7 MCG/ML Objective Remarks GENERAL: no acute distress. SKIN: Erythema extending from above the knee to fdc down the right lower extremity. Warm to the touch with healing abrasion on the knee joint. No drainage or fluctuance. HEAD: Atraumatic. Normocephalic. No temporal or scalp tenderness. EYES: Pupils equal round and reactive. Extraocular motions intact. No scleral icterus. No injection or drainage. ENT: Nose without bleeding, purulent drainage or septal hematoma. Throat without erythema, tonsillar hypertrophy or exudate. Uvula midline. Airway patent. NECK: Trachea midline. No JVD or lymphadenopathy. Supple, nontender, no meningeal signs. CARDIOVASCULAR: Regular rate and rhythm without murmurs, gallops, or rubs. RESPIRATORY: Clear to auscultation. Breath sounds equal bilaterally. No wheezes , rales, or rhonchi. GASTROINTESTINAL: Abdomen soft, non-tender, nondistended. No hepato-splenomegaly , or palpable masses. No guarding. MUSCULOSKELETAL: Right knee with swelling. Full range of motion. Neurovascularly intact. erythema out of the marked area but she has decreased edema compared with yesterday. NEUROLOGICAL: Awake and alert. Cranial nerves II through XII intact. Motor and sensory grossly within normal limits. Normal speech. Medications and IVs Current Medications Medications (Trade) Dose Ordered Sig/[place] Route Start Time Stop Time Status Last Admin Sodium Chloride 1,000 ml @ 100 mls/hr Q10H IV 11/08/17 19:30 11/10/17 03:48 (NS Flush) 2 ml UNSCH PRN IV FLUSH 11/08/17 19:30 (NS Flush) 2 ml BID IV FLUSH 11/08/17 21:00 (Tylenol) 650 mg Q4H PRN PO 11/08/17 19:30 11/10/17 08:09 (Zofran Inj) 4 mg Q6H PRN IVP 11/08/17 19:30 (Lovenox Inj) 40 mg Q24H SQ 11/08/17 21:00 (Narcan Inj) 0.4 mg UNSCH PRN IV PUSH 11/08/17 19:30 Pharmacy Profile Note 0 ml @ 0 mls/hr UNSCH OTHER 11/08/17 19:30 Piperacillin Sod/ Tazobactam Sod 50 ml @ 100 mls/hr Q6H IV 11/09/17 01:00 11/10/17 08:09 (Ambien) 10 mg HS PRN PO 11/08/17 22:00 11/09/17 22:16 (Percocet 5-325 Mg) 1 tab Q4H PRN PO 11/08/17 22:00 11/09/17 18:30 Vancomycin HCl 750 mg/Sodium Chloride 257.5 ml @ 250 mls/hr Q12H IV 11/09/17 06:00 11/10/17 06:18 A/P Assessment and Plan 1. Cellulitis, failed outpatient therapy, to continue Zosyn and Vancomycin, blood cultures following, ID specialist following recommended CT Right knee with aspiration of fluid, all plan discussed with patient in front of two nurses Miss Lott and Geraldine, patient agreed. Appreciated ID specialist input. Leukocytosis trending down with antibiotics. will have needle aspiration later today of her right knee fluid. 2. Anxiety disorder rarely requires medication 3. Hypokalemia, Hypomagnesemia and Hypophosphatemia for replacement today. DVT prophylaxis SCDs on hold Pharmacological management due to procedure scheduled. Discussed with Patient and nurse Miss Watkins who tells me the patient is been threatening the medical team with a Supervisor [place], also is verbally abusive with her, with me she and her questioned our management was explained that we are using good antibiotics, she will need to be covered for at least 48 to 72 hours until now No Blood stream infection. Discharge Planning Once cleared by ID specialist. Nic Le MD Nov 10, 2017 8:43 am
[2017-11-10 09:01] VITALS: BP 104/61; PULSE 86; RESP 18; TEMP 97.5; O2SAT 94
--- NOTE | 2017-11-10 12:34 | HHI.IDPN ---
Subjective Subjective Remarks she tells me that her knee and entire leg is worse More pain Unbale to bend the knee CT showed just small effusion no fever WBC slowly going down Antibiotics vancomuycin zosyn Allergies: Coded Allergies: codeine (Verified Adverse Reaction, Mild, NAUSEA, 11/08/17) Objective . Vital Signs Date Time Temp Pulse Resp B/P (MAP) Pulse Ox O2 Delivery O2 Flow Rate FiO2 11/10/17 09:01 97.5 86 18 104/61 (75) 94 11/10/17 04:18 99.6 93 18 106/55 (72) 94 11/10/17 00:47 98.5 96 18 101/66 (78) 97 11/09/17 21:58 100.0 90 18 96/53 (67) 96 11/09/17 17:09 99.2 95 18 91/57 (68) 100 11/10/17 11/10/17 11/11/17 15:00 23:00 07:00 # Voids 6 . Laboratory Tests Test 11/08/17 16:20 11/09/17 06:02 11/10/17 05:23 White Blood Count 23.1 TH/MM3 17.0 TH/MM3 15.8 TH/MM3 Red Blood Count 3.97 MIL/MM3 3.54 MIL/MM3 3.25 MIL/MM3 Hemoglobin 11.4 GM/DL 10.3 GM/DL 9.6 GM/DL Hematocrit 34.3 % 30.1 % 27.5 % Mean Corpuscular Volume 86.2 FL 85.2 FL 84.6 FL Mean Corpuscular Hemoglobin 28.7 PG 29.2 PG 29.5 PG Mean Corpuscular Hemoglobin Concent 33.3 % 34.3 % 34.9 % Red Cell Distribution Width 13.4 % 13.6 % 13.4 % Platelet Count 228 TH/MM3 183 TH/MM3 182 TH/MM3 Mean Platelet Volume 7.4 FL 7.7 FL 7.5 FL Neutrophils (%) (Auto) 92.4 % 88.9 % 85.8 % Lymphocytes (%) (Auto) 2.2 % 4.1 % 7.3 % Monocytes (%) (Auto) 5.3 % 6.9 % 6.6 % Eosinophils (%) (Auto) 0.0 % 0.0 % 0.1 % Basophils (%) (Auto) 0.1 % 0.1 % 0.2 % Neutrophils # (Auto) 21.3 TH/MM3 15.1 TH/MM3 13.6 TH/MM3 Lymphocytes # (Auto) 0.5 TH/MM3 0.7 TH/MM3 1.2 TH/MM3 Monocytes # (Auto) 1.2 TH/MM3 1.2 TH/MM3 1.0 TH/MM3 Eosinophils # (Auto) 0.0 TH/MM3 0.0 TH/MM3 0.0 TH/MM3 Basophils # (Auto) 0.0 TH/MM3 0.0 TH/MM3 0.0 TH/MM3 CBC Comment DIFF FINAL DIFF FINAL DIFF FINAL Differential Comment Erythrocyte Sedimentation Rate 20 mm/hr Laboratory Tests Test 11/08/17 16:20 11/09/17 06:02 11/10/17 05:23 Blood Urea Nitrogen 12 MG/DL 8 MG/DL 5 MG/DL Creatinine 0.95 MG/DL 0.90 MG/DL 0.88 MG/DL Random Glucose 108 MG/DL 97 MG/DL 83 MG/DL Total Protein 6.7 GM/DL 5.9 GM/DL 5.4 GM/DL Albumin 3.3 GM/DL 2.6 GM/DL Calcium Level 8.3 MG/DL 7.2 MG/DL 7.4 MG/DL Alkaline Phosphatase 48 U/L 56 U/L Aspartate Amino Transf (AST/SGOT) 12 U/L 12 U/L Alanine Aminotransferase (ALT/SGPT) 16 U/L 11 U/L Total Bilirubin 0.6 MG/DL 0.6 MG/DL Sodium Level 131 MEQ/L 135 MEQ/L 135 MEQ/L Potassium Level 3.6 MEQ/L 3.2 MEQ/L 3.7 MEQ/L Chloride Level 97 MEQ/L 105 MEQ/L 106 MEQ/L Carbon Dioxide Level 24.6 MEQ/L 20.7 MEQ/L 20.5 MEQ/L Anion Gap 9 MEQ/L 9 MEQ/L 9 MEQ/L Estimat Glomerular Filtration Rate 63 ML/MIN 67 ML/MIN 68 ML/MIN Lactic Acid Level 1.2 mmol/L C-Reactive Protein 16.00 MG/DL Protein Corrected Calcium 7.8 MG/DL 8.3 MG/DL Phosphorus Level 1.2 MG/DL Magnesium Level 1.9 MG/DL Microbiology Date/Time Source Procedure Growth Status 11/08/17 19:00 Blood Peripheral Aerobic Blood Culture - Preliminary NO GROWTH IN 1 DAY Resulted 11/08/17 19:00 Blood Peripheral Anaerobic Blood Culture - Preliminary NO GROWTH IN 1 DAY Resulted 11/08/17 18:50 Blood Peripheral Aerobic Blood Culture - Preliminary NO GROWTH IN 2 DAYS Resulted 11/08/17 18:50 Blood Peripheral Anaerobic Blood Culture - Preliminary NO GROWTH IN 2 DAYS Resulted Imaging Last Impressions Lower Extremity CT 11/09/17 0000 Signed Impressions: Service Date/Time: Thursday, November 09, 2017 19:15 - CONCLUSION: 1. Small joint effusion. Probable cellulitis anteriorly over the knee. Paul Nowak MD Knee X-Ray 11/08/17 0000 Signed Impressions: Service Date/Time: Wednesday, November 08, 2017 15:15 - CONCLUSION: 1. 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 2. No acute fracture or dislocation. Jose Yadav MD Physical Exam CONSTITUTIONAL/GENERAL: This is an adequately nourished patient, in no apparent distress. Visibly shivering TUBES/LINES/DRAINS: SKIN: No jaundice, rashes, or lesions. Ecchymoses on upper extremities. No wounds seen anteriorly. Skin temperature appropriate. Not diaphoretic. CARDIOVASCULAR: Regular rate and rhythm without murmurs, gallops, or rubs. No JVD. Peripheral pulses symmetric. RESPIRATORY/CHEST: Symmetric, unlabored respirations. Clear to auscultation. Breath sounds equal bilaterally. No wheezes, rales, or rhonchi. GASTROINTESTINAL: Abdomen soft, non-tender, nondistended. No hepato-splenomegaly , or palpable masses. No guarding. Bowel sounds present. MUSCULOSKELETAL: Extremities without clubbing, cyanosis RLE with dry scab just below the knee Erythema including lower and upper portion of the RLE it seems slightly better + limited PROM and AROM 2/2 pain: refused to bend her knee 2/2 pain R knee with tender / fluctuant area surrounded by induration NEUROLOGICAL: Awake and alert. Motor and sensory grossly within normal limits. Follows commands. Cognitively sharp. Moves all extremities. PSYCHIATRIC: frustrated Assessment & Plan Remarks RLE cellulitis with suspected R knee bursitis vs septic arthritis consult IR for knee fluid aspiration cont broad spectrum abx FU CLX Justa Fitzgerald MD Nov 10, 2017 12:34
[2017-11-10 12:42] VITALS: BP 105/59; PULSE 87; RESP 16; TEMP 97.9; O2SAT 100
[2017-11-10] MEDS: oxyCODONE/ACETAMINOPHEN 5 MG/325 MG TAB PO PRN ×2 (13:23→18:11)
[2017-11-10] MEDS: LORazepam 0.5 MG TAB PO PRN ×2 (15:36→21:34)
[2017-11-10] MEDS ORDERED: POTASSIUM PHOSPHATE INJ 30 MMOL in SODIUM CHLOR 0.9% 250 ML INJ 250 ML IV ONE (15:45)
[2017-11-10 16:00] VITALS: BP 104/63; PULSE 82; RESP 20; TEMP 98.8; O2SAT 98
[2017-11-10] MEDS: MAGNESIUM SULFATE 1 GM PREMIX 100 ML IV SCH ×2 (16:54→18:12)
[2017-11-10] MEDS ORDERED: POTASSIUM PHOSPHATE INJ 21 MMOL in SODIUM CHLORIDE 0.9% INJ 150 ML IV ONE (17:00)
--- NOTE | 2017-11-10 17:34 | PD.RAD ---
Post Procedure Progress Note Pre Procedure Diagnosis: (1) Cellulitis of right knee Post Procedure Diagnosis: (1) Cellulitis of right knee Procedure Date: Nov 10, 2017 Supervising Radiologist: Octavio Romano Proceduralist/Assist: Justa aMher, RT(R), Nader Page RT(R)() Anesthesia: Local Plan of Activity Patient to Unit: Nursing Unit Patient Condition: Good See PACS Report for procedural detail/treatment Drainage Procedure Procedure 1 Imaging Guidance: Ultrasound Side: Right Procedure Type: Aspiration (Knee) Fluid Removal (CCs): 8 Fluid Description: Yellow (synovial type) Findings: Suprapatellar collection Octavio Romano MD Nov 10, 2017 17:34
[2017-11-10 18:21] LABS: WBC, SYNOVIAL FLUID 2600 /MM3 (0-200)
[2017-11-10] MEDS: VANCOMYCIN INJ 1,250 MG in SODIUM CHLOR 0.9% 250 ML INJ 250 ML IV SCH (20:27)
[2017-11-10 21:30] VITALS: BP 112/72; PULSE 93; RESP 18; TEMP 97.9; O2SAT 100
[2017-11-10] MEDS: ENOXAPARIN SODIUM 40 MG/0.4 ML SYRINGE SQ SCH (21:35)
[2017-11-11 00:26] VITALS: BP 99/61; PULSE 76; RESP 18; TEMP 98.5; O2SAT 96
[2017-11-11] MEDS: PIPERACIL-TAZO 3.375 GM PREMIX 50 ML IV SCH ×4 (03:58→20:40)
[2017-11-11] MEDS: LORazepam 0.5 MG TAB PO PRN ×3 (04:06→20:10)
[2017-11-11] MEDS: ACETAMINOPHEN 325 MG TAB PO PRN ×4 (04:07→20:38)
[2017-11-11 05:48] VITALS: BP 101/62; PULSE 69; RESP 16; TEMP 99; O2SAT 96
[2017-11-11] MEDS: VANCOMYCIN INJ 1,250 MG in SODIUM CHLOR 0.9% 250 ML INJ 250 ML IV SCH ×2 (05:50→17:42)
[2017-11-11] MEDS: SODIUM CHLOR 0.9% 1000 ML INJ 1,000 ML IV SCH ×3 (07:30→23:56)
[2017-11-11] MEDS: SODIUM CHLORIDE 0.9% FLUSH 10 ML FLUSH IV FLUSH SCH ×2 (07:54→20:10)
[2017-11-11 09:16] VITALS: BP 104/56; PULSE 70; RESP 20; TEMP 98.6; O2SAT 97
[2017-11-11] MEDS ORDERED: ACETAMINOPHEN/HYDROcodone 325 MG/5 MG TAB PO PRN (11:00)
--- NOTE | 2017-11-11 12:26 | HHI.PR ---
Subjective Remarks This is a pleasant 47 y/o Female seen in the presence of nurse Miss Lott and Nurse Miss Chandler, stable complaint of pain and not improving, was asked for the intervention of Infectious disease specialist asked for CT aspiration of the right knee and continue antibiotics. at this time having some chills. 11/10: stable in her bedroom, explained to the patient her and another relative in the room, about her plan of care, later today she will have a needle aspiration of her Right knee fluid, continue Vancomycin and Zosyn, she will complete 48 hours at 1620 hours today, no nausea, vomit or diarrhea, discussed with nurse Miss Watkins, the patient asked for Anxiety medicine. 11/11: Royal in her bedroom, stable improving her condition, awaiting final recommendations by ID specialist for discharge No BSI. may continue by mouth antibiotics and discharge Home. perhaps tomorrow. Objective Vital Signs Date Time Temp Pulse Resp B/P (MAP) Pulse Ox O2 Delivery O2 Flow Rate FiO2 11/11/17 09:16 98.6 70 20 104/56 (72) 97 11/11/17 05:48 99.0 69 16 101/62 (75) 96 11/11/17 05:07 15 11/11/17 00:26 98.5 76 18 99/61 (74) 96 11/10/17 21:30 97.9 93 18 112/72 (85) 100 11/10/17 16:00 98.8 82 20 104/63 (77) 98 11/10/17 12:42 97.9 87 16 105/59 (74) 100 I/O 11/10/17 11/10/17 11/10/17 11/11/17 11/11/17 11/11/17 07:00 15:00 23:00 07:00 15:00 23:00 Intake Total 575 ml 157 ml 320 ml Balance 575 ml 157 ml 320 ml Intake Oral 375 ml 320 ml IV Total 200 ml 157 ml # Voids 6 Result Diagram: 11/10/17 0523 11/10/17 0523 Imaging Last Impressions Lower Extremity CT 11/09/17 0000 Signed Impressions: Service Date/Time: Thursday, November 09, 2017 19:15 - CONCLUSION: 1. Small joint effusion. Probable cellulitis anteriorly over the knee. Paul Nowak MD Knee X-Ray 11/08/17 0000 Signed Impressions: Service Date/Time: Wednesday, November 08, 2017 15:15 - CONCLUSION: 1. 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 2. No acute fracture or dislocation. Jose Yadav MD Procedures None Other Results Laboratory Tests Test 11/08/17 16:20 11/09/17 06:02 11/10/17 05:23 11/10/17 15:55 Erythrocyte Sedimentation Rate 20 mm/hr Prothrombin Time 12.4 SEC Prothromb Time International Ratio 1.2 RATIO Activated Partial Thromboplast Time 32.6 SEC Urine Color YELLOW Urine Turbidity CLEAR Urine pH 8.0 Urine Specific [place] 1.020 Urine Protein 30 mg/dL Urine Glucose (UA) NEG mg/dL Urine Ketones 10 mg/dL Urine Occult Blood SMALL Urine Nitrite NEG Urine Bilirubin NEG Urine Urobilinogen LESS THAN 2.0 MG/DL Urine Leukocyte Esterase NEG Urine RBC 16 /hpf Urine WBC LESS THAN 1 /hpf Urine Squamous Epithelial Cells 3 /hpf Urine Amorphous Sediment RARE Urine Bacteria RARE /hpf Microscopic Urinalysis Comment CULT NOT INDICATED Lactic Acid Level 1.2 mmol/L C-Reactive Protein 16.00 MG/DL Blood Urea Nitrogen 8 MG/DL 5 MG/DL Creatinine 0.90 MG/DL 0.88 MG/DL Random Glucose 97 MG/DL 83 MG/DL Total Protein 5.9 GM/DL 5.4 GM/DL Albumin 2.6 GM/DL Calcium Level 7.2 MG/DL 7.4 MG/DL Alkaline Phosphatase 56 U/L Aspartate Amino Transf (AST/SGOT) 12 U/L Alanine Aminotransferase (ALT/SGPT) 11 U/L Total Bilirubin 0.6 MG/DL Sodium Level 135 MEQ/L 135 MEQ/L Potassium Level 3.2 MEQ/L 3.7 MEQ/L Chloride Level 105 MEQ/L 106 MEQ/L Carbon Dioxide Level 20.7 MEQ/L 20.5 MEQ/L White Blood Count 15.8 TH/MM3 Red Blood Count 3.25 MIL/MM3 Hemoglobin 9.6 GM/DL Hematocrit 27.5 % Mean Corpuscular Volume 84.6 FL Mean Corpuscular Hemoglobin 29.5 PG Mean Corpuscular Hemoglobin Concent 34.9 % Red Cell Distribution Width 13.4 % Platelet Count 182 TH/MM3 Mean Platelet Volume 7.5 FL Neutrophils (%) (Auto) 85.8 % Lymphocytes (%) (Auto) 7.3 % Monocytes (%) (Auto) 6.6 % Eosinophils (%) (Auto) 0.1 % Basophils (%) (Auto) 0.2 % Neutrophils # (Auto) 13.6 TH/MM3 Lymphocytes # (Auto) 1.2 TH/MM3 Monocytes # (Auto) 1.0 TH/MM3 Eosinophils # (Auto) 0.0 TH/MM3 Basophils # (Auto) 0.0 TH/MM3 CBC Comment DIFF FINAL Differential Comment Phosphorus Level 1.2 MG/DL Magnesium Level 1.9 MG/DL Anion Gap 9 MEQ/L Estimat Glomerular Filtration Rate 68 ML/MIN Protein Corrected Calcium 8.3 MG/DL Vancomycin Level Trough 1.7 MCG/ML Synovial Fluid Color YELLOW Synovial Fluid Appearance SLIGHT Synovial Fluid WBC 2600 /MM3 Synovial Fluid RBC 320 /MM3 Synovial Fluid Neutrophils 76 % Synovial Fluid Lymphocytes 7 % Synovial Fluid Monocytes 17 % Synovial Fluid Crystals NONE Objective Remarks GENERAL: no acute distress. SKIN: Improved Erythema and edema. HEAD: Atraumatic. Normocephalic. No temporal or scalp tenderness. EYES: Pupils equal round and reactive. Extraocular motions intact. No scleral icterus. No injection or drainage. ENT: Nose without bleeding, purulent drainage or septal hematoma. Throat without erythema, tonsillar hypertrophy or exudate. Uvula midline. Airway patent. NECK: Trachea midline. No JVD or lymphadenopathy. Supple, nontender, no meningeal signs. CARDIOVASCULAR: Regular rate and rhythm without murmurs, gallops, or rubs. RESPIRATORY: Clear to auscultation. Breath sounds equal bilaterally. No wheezes , rales, or rhonchi. GASTROINTESTINAL: Abdomen soft, non-tender, nondistended. No hepato-splenomegaly , or palpable masses. No guarding. MUSCULOSKELETAL: Right knee improving status post aspiration. NEUROLOGICAL: Awake and alert. Cranial nerves II through XII intact. Motor and sensory grossly within normal limits. Normal speech. Medications and IVs Current Medications Medications (Trade) Dose Ordered Sig/Torrey Route Start Time Stop Time Status Last Admin Sodium Chloride 1,000 ml @ 100 mls/hr Q10H IV 11/08/17 19:30 11/10/17 21:35 (NS Flush) 2 ml UNSCH PRN IV FLUSH 11/08/17 19:30 (NS Flush) 2 ml BID IV FLUSH 11/08/17 21:00 (Tylenol) 650 mg Q4H PRN PO 11/08/17 19:30 11/11/17 11:06 (Zofran Inj) 4 mg Q6H PRN IVP 11/08/17 19:30 (Lovenox Inj) 40 mg Q24H SQ 11/08/17 21:00 (Narcan Inj) 0.4 mg UNSCH PRN IV PUSH 11/08/17 19:30 Pharmacy Profile Note 0 ml @ 0 mls/hr UNSCH OTHER 11/08/17 19:30 Piperacillin Sod/ Tazobactam Sod 50 ml @ 100 mls/hr Q6H IV 11/09/17 01:00 11/11/17 03:58 (Ambien) 10 mg HS PRN PO 11/08/17 22:00 11/09/17 22:16 Vancomycin HCl 1250 mg/Sodium Chloride 262.5 ml @ 250 mls/hr Q12H IV 11/10/17 18:00 11/11/17 05:50 Miscellaneous Information SPECIFIC LAB TO BE DRAWN:VANCOMYCIN TROUGH DATE TO... ONCE ONCE .XX 11/12/17 05:45 11/12/17 05:46 (Ativan) 0.5 mg Q6H PRN PO 11/10/17 15:15 11/11/17 11:06 (Lima 5-325 Mg) 1 tab Q4H PRN PO 11/11/17 11:00 A/P Assessment and Plan 1. Cellulitis, failed outpatient therapy, to continue Zosyn and Vancomycin, blood cultures following, ID specialist following recommended CT Right knee with aspiration of fluid. Appreciated ID specialist input. Leukocytosis trending down with antibiotics status post needle aspiration. culture no growth in 24 hours. blood culture negative in 48 hours. 2. Anxiety disorder rarely requires medication 3. Hypokalemia, Hypomagnesemia and Hypophosphatemia for replacement today. DVT prophylaxis SCDs on hold Pharmacological management due to procedure scheduled. Discussed with Patient Encourage activity. Discharge Planning Once cleared by ID specialist. Nic Le MD Nov 11, 2017 12:26
[2017-11-11 13:59] VITALS: BP 112/62; PULSE 70; RESP 18; TEMP 98.2; O2SAT 96
--- NOTE | 2017-11-11 16:29 | RADRPT ---
EXAM DATE/TIME: 11/10/2017 16:37 [facility] COMPARISON: No previous studies available for comparison. INDICATIONS : Patient with right knee cellulitis in need of aspiration. MEDICAL HISTORY : Anxiety SURGICAL HISTORY : Left knee surgery Liposuction Breast augmentation D&C ENCOUNTER: Initial ACUITY: 4 - 6 days PAIN SCORE: 3/10 Right Knee FLUORO TIME: IMAGE SERIES: DEVICE(S): 21 gauge needle was placed into the right knee joint. RESPONSE: Pre procedure pain level was 3/10 Post procedure pain level was 3/10 FLUID: Total volume of7.5 cc of clear yellow fluid was removed. Fluid specimen was submitted to the lab for evaluation. PROCEDURE : 1. Fluoroscopically guided right knee aspiration. The risks, benefits and alternatives to the procedure were explained and verbal and written consent w as obtained. The site was prepped in sterile fashion. Full sterile technique was used, including ca p, mask, sterile gloves and gown and a large sterile sheet. Hand hygiene and 2% chlorhexidine and/or betadine/alcohol prep was utilized per protocol for cutaneous antisepsis. The skin and subcutaneous tissues were infiltrated with local anesthetic solution. Thyroid function with sonographically guided into the small fluid collection. 7.5 cc of yellow-clear synovial fluid was aspirated. The patient tolerated the procedure well and there were no complications. CONCLUSION: Uncomplicated aspiration as above. Octavio Romano MD on November 11, 2017 at 16:25 Board Certified Radiologist. This report was verified electronically.
[2017-11-11 16:40] VITALS: BP 111/68; PULSE 77; RESP 20; TEMP 98; O2SAT 99
[2017-11-11] MEDS: ENOXAPARIN SODIUM 40 MG/0.4 ML SYRINGE SQ SCH ×2 (20:10→20:59)
[2017-11-11 21:15] VITALS: BP 122/72; PULSE 82; RESP 20; TEMP 98; O2SAT 100
--- NOTE | 2017-11-11 23:27 | HHI.IDPN ---
Subjective Subjective Remarks pt seen earlier today around 1300 She is sp IR aspiration of prepatella fluid collection: clx negative @ 24 hrs; Gstain neg; WBC is fairly low Feels better Able to wall Able to bend her knee Antibiotics vancomuycin zosyn Allergies: Coded Allergies: codeine (Verified Adverse Reaction, Mild, NAUSEA, 11/08/17) Objective . Vital Signs Date Time Temp Pulse Resp B/P (MAP) Pulse Ox O2 Delivery O2 Flow Rate FiO2 11/11/17 21:15 98.0 82 20 122/72 (89) 100 11/11/17 16:40 98.0 77 20 111/68 (82) 99 11/11/17 13:59 98.2 70 18 112/62 (79) 96 11/11/17 09:16 98.6 70 20 104/56 (72) 97 11/11/17 05:48 99.0 69 16 101/62 (75) 96 11/11/17 05:07 15 11/11/17 00:26 98.5 76 18 99/61 (74) 96 11/11/17 11/11/17 11/12/17 15:00 23:00 07:00 Intake Total 870 ml Balance 870 ml Intake Oral 320 ml IV Total 550 ml . Laboratory Tests Test 11/10/17 05:23 White Blood Count 15.8 TH/MM3 Red Blood Count 3.25 MIL/MM3 Hemoglobin 9.6 GM/DL Hematocrit 27.5 % Mean Corpuscular Volume 84.6 FL Mean Corpuscular Hemoglobin 29.5 PG Mean Corpuscular Hemoglobin Concent 34.9 % Red Cell Distribution Width 13.4 % Platelet Count 182 TH/MM3 Mean Platelet Volume 7.5 FL Neutrophils (%) (Auto) 85.8 % Lymphocytes (%) (Auto) 7.3 % Monocytes (%) (Auto) 6.6 % Eosinophils (%) (Auto) 0.1 % Basophils (%) (Auto) 0.2 % Neutrophils # (Auto) 13.6 TH/MM3 Lymphocytes # (Auto) 1.2 TH/MM3 Monocytes # (Auto) 1.0 TH/MM3 Eosinophils # (Auto) 0.0 TH/MM3 Basophils # (Auto) 0.0 TH/MM3 CBC Comment DIFF FINAL Differential Comment Laboratory Tests Test 11/10/17 05:23 Blood Urea Nitrogen 5 MG/DL Creatinine 0.88 MG/DL Random Glucose 83 MG/DL Total Protein 5.4 GM/DL Calcium Level 7.4 MG/DL Phosphorus Level 1.2 MG/DL Magnesium Level 1.9 MG/DL Sodium Level 135 MEQ/L Potassium Level 3.7 MEQ/L Chloride Level 106 MEQ/L Carbon Dioxide Level 20.5 MEQ/L Anion Gap 9 MEQ/L Estimat Glomerular Filtration Rate 68 ML/MIN Protein Corrected Calcium 8.3 MG/DL Microbiology Date/Time Source Procedure Growth Status 11/10/17 15:55 Fluid Other Gram Stain - Final Resulted 11/10/17 15:55 Fluid Other Body Fluid Culture - Preliminary NO GROWTH IN 24 HOURS. Resulted Imaging Last Impressions Aspiration 11/10/17 0000 Signed Impressions: Service Date/Time: October 16:37 - CONCLUSION: Uncomplicated aspiration as above. Octavio Romano MD Lower Extremity CT 11/09/17 0000 Signed Impressions: Service Date/Time: Thursday, November 09, 2017 19:15 - CONCLUSION: 1. Small joint effusion. Probable cellulitis anteriorly over the knee. Paul Nowak MD Knee X-Ray 11/08/17 0000 Signed Impressions: Service Date/Time: Wednesday, November 08, 2017 15:15 - CONCLUSION: 1. 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 2. No acute fracture or dislocation. Jose Yadav MD Physical Exam CONSTITUTIONAL/GENERAL: This is an adequately nourished patient, in no apparent distress. Visibly shivering TUBES/LINES/DRAINS: SKIN: No jaundice, rashes, or lesions. Ecchymoses on upper extremities. No wounds seen anteriorly. Skin temperature appropriate. Not diaphoretic. MUSCULOSKELETAL: Extremities without clubbing, cyanosis RLE with dry scab just below the knee Erythema including lower and upper portion of the RLE it seems improving + much improved PROM and AROM R knee R knee fluctuant seem to be resolved NEUROLOGICAL: Awake and alert. Motor and sensory grossly within normal limits. Follows commands. Cognitively sharp. Moves all extremities. PSYCHIATRIC: calm and cooperative Assessment & Plan Remarks RLE cellulitis with no septic arthritis favoring GAS small prepatella fluid collection: sp IR aspiration will change broad spectrum abx to Ancef FU CLX 'If cont to improve dc on Keflex 500 mg qid to complete 14 days tx plan was d/c pt Justa Fitzgerald MD Nov 11, 2017 23:27
[2017-11-11] MEDS: ceFAZolin 2 GM PREMIX 50 ML IV SCH (23:51)
[2017-11-12] VITALS: BP 104/59; PULSE 69; RESP 18; TEMP 98.3; O2SAT 97
[2017-11-12] MEDS: LORazepam 0.5 MG TAB PO PRN ×2 (02:05→08:29)
[2017-11-12] MEDS: ceFAZolin 2 GM PREMIX 50 ML IV SCH (05:29)
[2017-11-12] MEDS ORDERED: PHARMACY ORDERED LAB ONE (05:45)
[2017-11-12 06:21] VITALS: BP 106/62; PULSE 57; RESP 20; TEMP 97.4; O2SAT 96
[2017-11-12 08:00] VITALS: BP 95/59; PULSE 65; RESP 18; TEMP 98.7; O2SAT 96
[2017-11-12] MEDS: ACETAMINOPHEN 325 MG TAB PO PRN (08:29)
[2017-11-12] MEDS: SODIUM CHLORIDE 0.9% FLUSH 10 ML FLUSH IV FLUSH SCH (08:30)
--- NOTE | 2017-11-12 11:56 | HHI.PR ---
Subjective Remarks pain and awelling improved, still with erythema- but patient states improved wanting to go home- no fever or chills ambulating around- Objective Vitals Vital Signs Date Time Temp Pulse Resp B/P (MAP) Pulse Ox O2 Delivery O2 Flow Rate FiO2 11/12/17 08:00 98.7 65 18 95/59 (71) 96 Manual Cuff/Auscultation 11/12/17 06:21 97.4 57 20 106/62 (77) 96 11/12/17 00:00 98.3 69 18 104/59 (74) 97 11/11/17 21:15 98.0 82 20 122/72 (89) 100 11/11/17 16:40 98.0 77 20 111/68 (82) 99 11/11/17 13:59 98.2 70 18 112/62 (79) 96 I/O 11/11/17 11/11/17 11/11/17 11/12/17 11/12/17 11/12/17 07:00 15:00 23:00 07:00 15:00 23:00 Intake Total 157 ml 870 ml 50 ml 500 ml Balance 157 ml 870 ml 50 ml 500 ml Intake Oral 320 ml IV Total 157 ml 550 ml 50 ml 500 ml # Voids 1 Result Diagram: 11/10/17 0523 11/10/17 0523 Imaging Last Impressions Aspiration 11/10/17 0000 Signed Impressions: Service Date/Time: October 16:37 - CONCLUSION: Uncomplicated aspiration as above. Octavio Romano MD Lower Extremity CT 11/09/17 0000 Signed Impressions: Service Date/Time: Thursday, November 09, 2017 19:15 - CONCLUSION: 1. Small joint effusion. Probable cellulitis anteriorly over the knee. Paul Nowak MD Knee X-Ray 11/08/17 0000 Signed Impressions: Service Date/Time: Wednesday, November 08, 2017 15:15 - CONCLUSION: 1. 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 2. No acute fracture or dislocation. Jose Yadav MD Objective Remarks awake arpit lert anciteric lungs clear regular rhythm abdomen soft, nontender right LE knee- mild swelling + good flexion + erythema- improved per patient- extending to tibial aspect ++ peripheral pulses Procedures 11/10- knee aspiration A/P Assessment and Plan 47 years old female Cellulitis, failed outpatient therapy S/P aspiration growth in 24 hours. blood culture negative in 48 hours. DC on Cephalexin 500 mg po qid x 12 days Percocet prn for pain Anxiety disorder rarely requires medication - continue her home Hydroxyzine as OP Hypokalemia, Hypomagnesemia and Hypophosphatemia- [facility] patient states she tolerates [place] well. Not percocet- makes her "angry" Mesfin Can MD Nov 12, 2017 11:56
[2017-11-12 12:00] VITALS: BP 119/67; PULSE 73; RESP 18; TEMP 97.7; O2SAT 98
[2017-11-12] MEDS ORDERED: CEPHALEXIN MONOHYDRATE 500 MG CAP PO SCH (12:00)
[2017-11-12] MEDS ORDERED: HYDR-3516 PO (12:09)
[2017-11-12] MEDS ORDERED: CEPH500C PO (12:09)
--- NOTE | 2017-11-12 12:12 | HHI.DS ---
Discharge Summary Admission Date Nov 08, 2017 at 19:22 Discharge Date: Nov 12, 2017 Admitting Diagnosis right knee cellulitis/sepsis Procedures 11/10- knee aspiration Brief History - From Admission 47-year-old female with a past medical history significant for anxiety presents for evaluation of right knee redness and swelling. The patient reports that 2 days ago she felt achy and had chills. She initially noticed right knee swelling yesterday with surrounding erythema that was warm to the touch. The patient went to the [facility] where she was evaluated and had 1 dose of IM antibiotic and was discharged with by mouth doxycycline. The patient reports that the swelling continued to expand with increased redness and pain. Patient reports she is able to ambulate however it is painful. She has a healing abrasion on the right knee that she sustained several days ago while painting her house. Vital signs: Temperature 100.2, pulse 94, respiratory rate 18, blood pressure 122/77, pulse ox 100% on room air CBC/BMP: 11/10/17 0523 11/10/17 0523 Significant Findings Laboratory Tests Test 11/10/17 05:23 11/10/17 15:55 White Blood Count 15.8 TH/MM3 (4.0-11.0) Red Blood Count 3.25 MIL/MM3 (4.00-5.30) Hemoglobin 9.6 GM/DL (11.6-15.3) Hematocrit 27.5 % (35.0-46.0) Neutrophils (%) (Auto) 85.8 % (16.0-70.0) Lymphocytes (%) (Auto) 7.3 % (9.0-44.0) Neutrophils # (Auto) 13.6 TH/MM3 (1.8-7.7) Monocytes # (Auto) 1.0 TH/MM3 (0-0.9) Blood Urea Nitrogen 5 MG/DL (7-18) Total Protein 5.4 GM/DL (6.4-8.2) Calcium Level 7.4 MG/DL (8.5-10.1) Phosphorus Level 1.2 MG/DL (2.5-4.9) Sodium Level 135 MEQ/L (136-145) Carbon Dioxide Level 20.5 MEQ/L (21.0-32.0) Estimat Glomerular Filtration Rate 68 ML/MIN (>89) Protein Corrected Calcium 8.3 MG/DL (8.5-10.1) Vancomycin Level Trough 1.7 MCG/ML (5.0-10.0) Synovial Fluid Appearance SLIGHT (CLEAR) Synovial Fluid WBC 2600 /MM3 (0-200) Synovial Fluid RBC 320 /MM3 (0-0) Synovial Fluid Neutrophils 76 % (0-25) PE at Discharge awake arpit lert anciteric lungs clear regular rhythm abdomen soft, nontender right LE knee- mild swelling + good flexion + erythema- improved per patient- extending to tibial aspect ++ peripheral pulses Pt update on day of discharge afebrile, ambulating around erythema- improved per patient Hospital Course 47 years old female Cellulitis, failed outpatient therapy S/P aspiration growth in 24 hours. blood culture negative in 48 hours. DC on Cephalexin 500 mg po qid x 12 days [place] prn for pain Anxiety disorder rarely requires medication - continue her home Hydroxyzine as OP Hypokalemia, Hypomagnesemia and Hypophosphatemia- replaced [facility] patient states she tolerates [place] well. Not percocet- makes her "angry" Pt Condition on Discharge: Stable Discharge Disposition: Discharge Home Discharge Time: <= 30 minutes Discharge Instructions DIET: Follow Instructions for: As Tolerated, No Restrictions Activities you can perform: Weight Bearing as Mareln Activities to Avoid: Strenuous Activity Follow up Referrals: PCP Follow-[facility] - [facility] New Medications: Cephalexin (Cephalexin) 500 Mg Cap 500 MG PO Q6HR for Infection for 12 Days, CAP Hydrocodone/Acetaminophen (Hydrocodone-Acetamin 5-325 mg) 5 Mg-325 Mg Tablet 1 TAB PO Q8 PRN for PAIN SCALE 6 TO 10, #30 TAB Mesfin Can MD Nov 12, 2017 12:11
--- NOTE | 2017-11-12 13:26 | HHI.IDPN ---
Subjective Subjective Remarks doing well really improved no fever Antibiotics ancef Allergies: Coded Allergies: codeine (Verified Adverse Reaction, Mild, NAUSEA, 11/08/17) Objective . Vital Signs Date Time Temp Pulse Resp B/P (MAP) Pulse Ox O2 Delivery O2 Flow Rate FiO2 11/12/17 12:00 97.7 73 18 119/67 (84) 98 11/12/17 08:00 98.7 65 18 95/59 (71) 96 Manual Cuff/Auscultation 11/12/17 06:21 97.4 57 20 106/62 (77) 96 11/12/17 00:00 98.3 69 18 104/59 (74) 97 11/11/17 21:15 98.0 82 20 122/72 (89) 100 11/11/17 16:40 98.0 77 20 111/68 (82) 99 11/11/17 13:59 98.2 70 18 112/62 (79) 96 . Microbiology Date/Time Source Procedure Growth Status 11/10/17 15:55 Fluid Other Gram Stain - Final Resulted 11/10/17 15:55 Fluid Other Body Fluid Culture - Preliminary NO GROWTH IN 48 HOURS. Resulted Imaging Last Impressions Aspiration 11/10/17 0000 Signed Impressions: Service Date/Time: October 16:37 - CONCLUSION: Uncomplicated aspiration as above. Octavio Romano MD Lower Extremity CT 11/09/17 0000 Signed Impressions: Service Date/Time: Thursday, November 09, 2017 19:15 - CONCLUSION: 1. Small joint effusion. Probable cellulitis anteriorly over the knee. Paul Nowak MD Knee X-Ray 11/08/17 0000 Signed Impressions: Service Date/Time: Wednesday, November 08, 2017 15:15 - CONCLUSION: 1. 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 2. No acute fracture or dislocation. Jose Yadav MD Physical Exam CONSTITUTIONAL/GENERAL: This is an adequately nourished patient, in no apparent distress. Visibly shivering TUBES/LINES/DRAINS: SKIN: No jaundice, rashes, or lesions. Ecchymoses on upper extremities. No wounds seen anteriorly. Skin temperature appropriate. Not diaphoretic. MUSCULOSKELETAL: Extremities without clubbing, cyanosis RLE with dry scab just below the knee full PROM and AROM R knee nearly complately resolved erythema, some residual edema Assessment & Plan Remarks RLE cellulitis with no septic arthritis favoring GAS - clinically resolvng small prepatella fluid collection: sp IR aspiration FU CLX negative PLAN: OK to dc on Keflex 500 mg qid to complete 14 days Justa Fitzgerald MD Nov 12, 2017 13:26
== END 2017-11-12 13:33 | disposition home or self-care (01) | DRG 603 ==
LOC: NEPC 14:38 → NEDA 19:22 → NEPGCP 20:35 → N05A 11-11 16:02
PROVIDERS: ADMIT Internal Medicine; ATTEND Internal Medicine
PROC: 0S9C3ZZ Drainage of Right Knee Joint, Percutaneous Approach (ICD-10-PCS; principal; 2017-11-10)
DX: L03.115 Cellulitis of right lower limb (principal); E83.42 Hypomagnesemia; S80.211A Abrasion, right knee, initial encounter; M70.51 Other bursitis of knee, right knee; E87.6 Hypokalemia; E83.39 Other disorders of phosphorus metabolism; M25.461 Effusion, right knee; F41.9 Anxiety disorder, unspecified; Y92.009 Unspecified place in unspecified non-institutional (private) residence as the place of occurrence of the external cause; X58.XXXA Exposure to other specified factors, initial encounter; Z88.5 Allergy status to narcotic agent
CPT/HCPCS: 20611; 73564; 73700; 80048; 80053; 80202; 81001; 83605; 83735; 84100; 84155; 85025; 85610; 85652; 85730; 86140; 87040; 87070; 87205; 89051; 89060; 96374; J0690; J1650; J2543; J3370; J3475; J7030; J7050